=== PATIENT | male | born 1950 | race Caucasian/White ===

== ENCOUNTER → 2021-04-05 12:50 | Outpatient (CLI) | payer OTHER, SELFPAY ==
--- NOTE | 2021-04-05 12:52 | DI.RAD.S_ITS ---
PROCEDURE: XR ANKLE LT MIN 3V INDICATIONS: L ankle pain, dorsiflexion injury, pain on ATFL TECHNIQUE: 3 views of the ankle were acquired. COMPARISON: None. FINDINGS: Bones: No fractures or dislocations. Ankle mortise is normally aligned. No suspicious bony lesions. Soft tissues: Soft tissue swelling along the lateral ankle. Small tibiotalar joint effusion. Achilles tendon appears normal. IMPRESSION: No fracture. Soft tissue swelling along the lateral ankle along with small tibiotalar effusion could represent an ankle sprain. Dictated by: Luis Kelly M.D. on 04/05/2021 at 13:17 Approved by: Luis Kelly M.D. on 04/05/2021 at 13:18
== END ==
PROVIDERS: Referring Provider Physician Assistant; Visit Provider Physician Assistant
DX: S99.812A Other specified injuries of left ankle, initial encounter (principal); M25.472 Effusion, left ankle
CPT/HCPCS: 73610